=== PATIENT | female | born 1975 ===

== ENCOUNTER 2017-06-01 18:16 | Emergency (ER) | payer SELFPAY ==
--- NOTE | 2017-06-01 19:48 | C.PDOC ---
History Of Present Illness Meri Guy is a 42 year old female, whose past medical history includes HTN and : 3 Para: 2, who presents to the emergency department complaining of persistent left sided headache since this morning. Patient reports taking Tylenol with no significant relief. She notes being 13 weeks and having sound and occasional headaches. Patient denies chest pain, shortness of breath, fever, chills, cough, nausea, vomiting, diarrhea, abdominal pain, dizziness or other complaints. Time Seen by Provider: 06/01/17 19:32 Chief Complaint (Nursing): High Blood Pressure History Per: Patient History/Exam Limitations: no limitations Onset/Duration Of Symptoms: Hrs (this morning ) Current Symptoms Are (Timing): Still Present Associated Symptoms: Headache (left sided ). denies: Chest Pain, Dizziness Exacerbating Factor(s): Pos: None Recent travel outside of the [place]: No Past Medical History Reviewed: Historical Data, Nursing Documentation, Vital Signs Vital Signs: Last Vital Signs Temp 98.2 F 06/01/17 21:33 Pulse 75 06/01/17 21:33 Resp 20 06/01/17 21:33 BP 135/71 06/01/17 21:33 Pulse Ox 100 06/01/17 21:44 - Medical History PMH: HTN Family History: States: No Known Family Hx - Social History Hx Alcohol Use: No Hx Substance Use: No - Immunization History Hx Tetanus Toxoid Vaccination: No Hx Influenza Vaccination: No Hx Pneumococcal Vaccination: No Review Of Systems Constitutional: Negative for: Fever, Chills Eyes: Negative for: Vision Change Cardiovascular: Negative for: Chest Pain Respiratory: Negative for: Shortness of Breath Gastrointestinal: Negative for: Abdominal Pain Genitourinary: Negative for: Dysuria Musculoskeletal: Negative for: Neck Pain Neurological: Positive for: Headache. Negative for: Change in Speech, Dizziness Physical Exam - Physical Exam Appears: Well, Non-toxic, No Acute Distress Skin: Normal Color, Warm, Dry Head: Atraumatic, Normacephalic Eye(s): bilateral: Normal Inspection Neck: Normal ROM Cardiovascular: Rhythm Regular Respiratory: Normal Breath Sounds, No Rales, No Rhonchi Gastrointestinal/Abdominal: Normal Exam, Bowel Sounds (Normal ), Soft, No Tenderness, No Distention, No Guarding, No Rebound Neurological/Psych: Oriented x3, Normal Speech ED Course And Treatment - Laboratory Results Lab Interpretation: Normal (ua neg.) O2 Sat by Pulse Oximetry: 100 (room air) Pulse Ox Interpretation: Normal Reevaluation Time: 21:41 Reassessment Condition: Improved (pt's DEMARCO improved but pt wants other pain meds , though hesitent to take narcotics for associated (mild risks)) Medical Decision Making Medical Decision Making: Impression: 42 y/o female with unremarkable physical exam c/o left sided headache since this morning and is 13 weeks . Plan: -- Urinalysis -- Tylenol -- Reassess and disposition Progress Notes: 2129: given Labetolol (usual PM dose) has DM x 4 yrs since last preg, well controlled NO susp of CVA- pt reassured. NO pre-ecclampsia, normal BP and no proteinuria Disposition Doctor Will See Patient In The: Office Counseled Patient/Family Regarding: Studies Performed, Diagnosis - Disposition Referrals: [facility] [Outside] [place] [employer] [Outside] Fela Velez MD [Medical Doctor] - Disposition: HOME/ ROUTINE Disposition Time: 21:43 Condition: GOOD Additional Instructions: para dolor de romero harry bhandari embarrazo, reuben 1000 mg Tylenol cada 6 horas chely necessario (Un dose de 325 mg es para un margarita de 2 anos) Sigue en [facility] [place] [facility]' con [facility]. Instructions: Headache, Adult, - The Fourth Month Forms: [employer] (Guyanese) Print Language: CHADIAN - Clinical Impression Clinical Impression: , Headache - Scribe Statement The provider has reviewed the documentation as recorded by the Scribe Scribe Attestation: Virginia Tran MD Scribe Attestation: All medical record entries made by the Scribe were at my direction and personally dictated by me. I have reviewed the chart and agree that the record accurately reflects my personal performance of the history, physical exam, medical decision making, and the department course for this patient. I have also personally directed, reviewed, and agree with the discharge instructions and disposition.
[2017-06-01 20:29] LABS: SQUAMOUS EPITHIAL < 1 /hpf (0-5); URINE BILIRUBIN NEGATIVE (NEGATIVE); URINE BLOOD NEGATIVE (NEGATIVE); URINE CLARITY Clear (Clear); URINE COLOR Straw (YELLOW); URINE GLUCOSE (UA) 2+ mg/dL (Normal); URINE LEUKOCYTE ESTERASE TRACE Leu/uL (Negative); URINE NITRATE NEGATIVE (NEGATIVE); URINE PROTEIN NEGATIVE (NEGATIVE); URINE UROBILINOGEN NORMAL mg/dL (0.2-1.0)
[2017-06-01 21:33] VITALS: BP 135/71; PULSE 75; RESP 20; TEMP 98.2
[2017-06-01 21:42] VITALS: O2SAT 100
== END 2017-06-01 21:52 | disposition home or self-care (01) ==
LOC: C.ER 18:16
DX: O26.91 Pregnancy related conditions, unspecified, first trimester (principal); R51 Headache; Z3A.13 13 weeks gestation of pregnancy

== ENCOUNTER 2018-01-13 21:54 | Observation (INO) | payer OTHER ==
[2018-01-13 22:36] LABS: BASO # 0.1 K/uL (0.0-0.2); EOS # 0.4 K/uL (0.0-0.7); EOS % 3.1 % (0.0-4.0); HEMOGLOBIN 12.9 g/dL (11.0-16.0); LYMPH # 2.6 K/uL (1.0-4.3); LYMPH % 19.8 % (20.0-40.0); MEAN CORPUSCULAR HEMOGLOBIN 29.7 pg (27.0-31.0); MEAN CORPUSCULAR HGB CONC 34.5 g/dL (33.0-37.0); MEAN PLATELET VOLUME 8.1 fL (7.2-11.7); MONO # 0.9 K/uL (0.0-0.8); MONO % 7.1 % (0.0-10.0); NEUT # 8.9 K/uL (1.8-7.0); RBC 4.34 Mil/uL (3.80-5.20); RED CELL DISTRIBUTION WIDTH 14.1 % (11.5-14.5); WHITE BLOOD COUNT 12.9 K/uL (4.8-10.8)
[2018-01-13 22:50] LABS: INR 1.1; PROTHROMBIN TIME 11.8 SECONDS (9.7-12.2)
[2018-01-13 22:52] LABS: ALB/GLOB RATIO 1.3 (1.0-2.1); ALBUMIN 4.1 g/dL (3.5-5.0); ALT/SGPT 22 U/L (9-52); AST/SGOT 21 U/L (14-36); BLOOD UREA NITROGEN 21 mg/dL (7-17); CALCIUM 9.2 mg/dl (8.6-10.4); GFR NON-AFRICAN AMERICAN > 60
[2018-01-13 23:01] LABS: CK-MB 0.57 ng/mL (0.0-3.38)
[2018-01-14 00:51] LABS: URINE BILIRUBIN NEGATIVE (NEGATIVE); URINE BLOOD NEGATIVE (NEGATIVE); URINE CLARITY Clear (Clear); URINE COLOR Straw (YELLOW); URINE GLUCOSE (UA) NORMAL (Normal); URINE LEUKOCYTE ESTERASE 2+ Leu/uL (Negative); URINE PROTEIN NEGATIVE (NEGATIVE); URINE UROBILINOGEN NORMAL mg/dL (0.2-1.0)
--- NOTE | 2018-01-14 01:33 | CP.PCM.HP ---
<Bk Aguirre P - Last Filed: 01/14/18 07:29> Meds Allergies/Adverse Reactions: Allergies Allergy/AdvReac Type Severity Reaction Status Date / Time amoxicillin Allergy Verified 01/13/18 22:03 enalapril Allergy Verified 01/13/18 22:03 Results - Vital Signs Recent Vital Signs: Last Vital Signs Temp 98.2 F 01/13/18 22:07 Pulse 71 01/14/18 06:16 Resp 16 01/14/18 06:16 BP 139/78 01/14/18 06:16 Pulse Ox 99 01/14/18 06:53 - Labs Result Diagrams: 01/14/18 04:47 01/14/18 04:47 Labs: Laboratory Results - last 24 hr 01/13/18 01/13/18 01/13/18 22:30 22:30 22:30 WBC 12.9 H RBC 4.34 Hgb 12.9 Hct 37.3 MCV 86.0 MCH 29.7 MCHC 34.5 RDW 14.1 Plt Count 338 MPV 8.1 Neut % (Auto) 69.0 Lymph % (Auto) 19.8 L [place] % (Auto) 7.1 Eos % (Auto) 3.1 Baso % (Auto) 1.0 Neut # (Auto) 8.9 H Lymph # (Auto) 2.6 [place] # (Auto) 0.9 H Eos # (Auto) 0.4 Baso # (Auto) 0.1 PT 11.8 INR 1.1 APTT 34 Sodium 143 Potassium 4.5 Chloride 104 Carbon Dioxide 26 Anion Gap 18 BUN 21 H Creatinine 0.7 Est GFR ( Amer) > 60 Est GFR (Non-Af Amer) > 60 Random Glucose 114 H Calcium 9.2 Phosphorus Magnesium Total Bilirubin 0.4 AST 21 ALT 22 Alkaline Phosphatase 72 Total Creatine Kinase 40 CK-MB (Mass) 0.57 Troponin I < 0.0120 Total Protein 7.3 Albumin 4.1 Globulin 3.2 Albumin/Globulin Ratio 1.3 Triglycerides Cholesterol LDL Cholesterol Direct HDL Cholesterol Free T4 TSH 3rd Generation Urine Color Urine Clarity Urine pH Ur Specific [place] Urine Protein Urine Glucose (UA) Urine Ketones Urine Blood Urine Nitrate Urine Bilirubin Urine Urobilinogen Ur Leukocyte Esterase Urine WBC (Auto) Urine RBC (Auto) 10/02/18 10/02/18 10/02/18 00:31 04:47 04:47 WBC 9.4 RBC 4.49 Hgb 13.2 Hct 38.9 MCV 86.8 MCH 29.4 MCHC 33.8 RDW 14.1 Plt Count 327 MPV 8.1 Neut % (Auto) 59.9 Lymph % (Auto) 29.6 [place] % (Auto) 5.8 Eos % (Auto) 3.6 Baso % (Auto) 1.1 Neut # (Auto) 5.7 Lymph # (Auto) 2.8 [place] # (Auto) 0.5 Eos # (Auto) 0.3 Baso # (Auto) 0.1 PT INR APTT Sodium 141 Potassium 4.1 Chloride 108 H Carbon Dioxide 21 L Anion Gap 16 BUN 20 H Creatinine 0.6 L Est GFR ( Amer) > 60 Est GFR (Non-Af Amer) > 60 Random Glucose 108 H Calcium 9.2 Phosphorus 4.4 Magnesium 1.8 Total Bilirubin 0.5 AST 16 ALT 29 Alkaline Phosphatase 69 Total Creatine Kinase 38 CK-MB (Mass) 0.81 Troponin I < 0.0120 Total Protein 7.0 Albumin 4.0 Globulin 3.0 Albumin/Globulin Ratio 1.3 Triglycerides 95 Cholesterol 223 H LDL Cholesterol Direct 155 H HDL Cholesterol 50 Free T4 TSH 3rd Generation 3.45 Urine Color Straw Urine Clarity Clear Urine pH 6.0 Ur Specific [place] 1.005 Urine Protein Negative Urine Glucose (UA) Normal Urine Ketones Negative Urine Blood Negative Urine Nitrate Negative Urine Bilirubin Negative Urine Urobilinogen Normal Ur Leukocyte Esterase 2+ H Urine WBC (Auto) 8 H Urine RBC (Auto) < 1 01/14/18 01/14/18 04:47 04:47 WBC RBC Hgb Hct MCV MCH MCHC RDW Plt Count MPV Neut % (Auto) Lymph % (Auto) [place] % (Auto) Eos % (Auto) Baso % (Auto) Neut # (Auto) Lymph # (Auto) [place] # (Auto) Eos # (Auto) Baso # (Auto) PT INR APTT Sodium Potassium Chloride Carbon Dioxide Anion Gap BUN Creatinine Est GFR ( Amer) Est GFR (Non-Af Amer) Random Glucose Calcium Phosphorus Magnesium Total Bilirubin AST ALT Alkaline Phosphatase Total Creatine Kinase 37 CK-MB (Mass) 0.81 Troponin I < 0.0120 Total Protein Albumin Globulin Albumin/Globulin Ratio Triglycerides Cholesterol LDL Cholesterol Direct HDL Cholesterol Free T4 0.87 TSH 3rd Generation Urine Color Urine Clarity Urine pH Ur Specific [place] Urine Protein Urine Glucose (UA) Urine Ketones Urine Blood Urine Nitrate Urine Bilirubin Urine Urobilinogen Ur Leukocyte Esterase Urine WBC (Auto) Urine RBC (Auto) Attending/Attestation - Attestation I have personally seen and examined this patient.: Yes I have fully participated in the care of the patient.: Yes I have reviewed all pertinent clinical information: Yes Notes (Text): 01/14/18 07:29 Upper thoracic spine, left rib cage, and lower sternal pain, started all sudden, no h/o injury, reporducible, related with movement, breathing, coughing, slr + on the left side, clinically from thoracic radiculopathy, dd any pleural/pericar dial injury. H/o HTN H/o Early dm Recent delivery Plan CTA chest for the DD Home meds pain control with nsaid/tramadol Repeat troponin. See orders for detail. <Christy Neri - Last Filed: 01/14/18 08:10> History of Present Illness - History of Present Illness History of Present Illness: History and Physical - Hospitalist Service CC: Chest pain HPI: Patient is a 42 year old female with past medical history of Hypertension, Diabetes Mellitus who presents to the Emergency Dept for chest pain that started 2 hours prior to arrival. Patient's is at the bedside. Patient states that this morning when walking around in the house, she started experiecing mild chest pain but didn't think anything of it. While sitting down and eating dinner, patient states that she started experiencing severe midsternal chest pain that radiates to the mid back. Patient states that this has never happened to her before. Pain was so severe that she started crying. She describes it as a pressure like pain that was 10/10 on the pain scale. Chest pain was associated with diaphoresis, shortness of breath and nausea. Denies any vomiting. She denies any alleviating or exacerbating factors. Patient recently had a baby [address] [facility]. Delivery and was uneventful. Currently pain is a 8/10 on the pain scale. Patient states that although she does not check her blood pressure at home, she is compliant with her medications. At this time she admits to having an intermittent headache. She denies any fevers, chills, dizziness, changes in vision/hearing, palpitations, abdominal pain, urinary symptoms, changes in bowel habits, heavy lifting. ED course: Labetalol 100mg PO x 1 Allergies: Amoxicillin (rash), Enalapril (throat swells/itches) Medications: Labetalol 100mg PO BID, Metformin 1000mg PO BID Medical History: Hypertension x 18 years, Diabetes Mellitus, Type 2 x 5-6 years Surgical History: Right breast lumpectomy (benign) Social History: Denies alcohol, tobacco, drug use; lives with her spouse and daughter Family History: Mother- Healthy; Father - healthy; denies any family history of cardiac problems OB History: : 1999 at term, no complications G2: 2004 at term, no complications G3: 2018 at term, no complications Present on Admission - Present on Admission Any Indicators Present on Admission: No Past Patient History - Infectious Disease Hx of Infectious Diseases: None - Past Social History Smoking Status: Never Smoked - CARDIAC Hx Hypertension: Yes - ENDOCRINE/METABOLIC Hx Diabetes Mellitus Type 2: Yes - PSYCHIATRIC Hx Substance Use: No - SURGICAL HISTORY Hx Surgeries: Yes Other/Comment: cyst removed right breast - ANESTHESIA Hx Anesthesia: Yes Hx Anesthesia Reactions: No Physical Exam - Constitutional Appears: Non-toxic, No Acute Distress - Head Exam Head Exam: ATRAUMATIC, NORMAL INSPECTION, NORMOCEPHALIC - Eye Exam Eye Exam: EOMI, PERRL. absent: Scleral icterus Additional comments: Bilateral eye lid swelling - ENT Exam ENT Exam: Mucous Membranes Moist - Neck Exam Neck exam: Positive for: Full Rom. Negative for: Tenderness - Respiratory Exam Respiratory Exam: Clear to Auscultation Bilateral, NORMAL BREATHING PATTERN. absent: Rales, Rhonchi, Wheezes - Cardiovascular Exam Cardiovascular Exam: REGULAR RHYTHM, +S1, +S2, Systolic Murmur. absent: Tachyc ardia Additional comments: Midsternal tenderness to palpation (reproducible) - GI/Abdominal Exam GI & Abdominal Exam: Guarding, Normal Bowel Sounds, Rebound, Rigid, Soft. absent: Tenderness Additional comments: Mild RUQ tenderness to palpation - Extremities Exam Extremities exam: Positive for: normal capillary refill, normal inspection, pedal pulses present. Negative for: calf tenderness - Back Exam Back exam: FULL ROM, paraspinal tenderness. absent: CVA tenderness (L), CVA tenderness (R) Additional comments: +tenderness at the level of T3-T6 - Neurological Exam Neurological exam: Alert, CN II-XII Intact, Oriented x3 - Psychiatric Exam Psychiatric exam: Normal Affect, Normal Mood - Skin Skin Exam: Normal Color, Warm Results - Vital Signs Recent Vital Signs: Last Vital Signs Temp 98.2 F 01/13/18 22:07 Pulse 76 01/13/18 22:25 Resp 18 01/13/18 22:07 BP 181/98 H 01/13/18 22:07 Pulse Ox 99 01/13/18 22:07 - Labs Result Diagrams: 01/14/18 04:47 01/14/18 04:47 Labs: Laboratory Results - last 24 hr 01/13/18 01/13/18 01/13/18 22:30 22:30 22:30 WBC 12.9 H RBC 4.34 Hgb 12.9 Hct 37.3 MCV 86.0 MCH 29.7 MCHC 34.5 RDW 14.1 Plt Count 338 MPV 8.1 Neut % (Auto) 69.0 Lymph % (Auto) 19.8 L [place] % (Auto) 7.1 Eos % (Auto) 3.1 Baso % (Auto) 1.0 Neut # (Auto) 8.9 H Lymph # (Auto) 2.6 [place] # (Auto) 0.9 H Eos # (Auto) 0.4 Baso # (Auto) 0.1 PT 11.8 INR 1.1 APTT 34 Sodium 143 Potassium 4.5 Chloride 104 Carbon Dioxide 26 Anion Gap 18 BUN 21 H Creatinine 0.7 Est GFR ( Amer) > 60 Est GFR (Non-Af Amer) > 60 Random Glucose 114 H Calcium 9.2 Total Bilirubin 0.4 AST 21 ALT 22 Alkaline Phosphatase 72 Total Creatine Kinase 40 CK-MB (Mass) 0.57 Troponin I < 0.0120 Total Protein 7.3 Albumin 4.1 Globulin 3.2 Albumin/Globulin Ratio 1.3 Urine Color Urine Clarity Urine pH Ur Specific [place] Urine Protein Urine Glucose (UA) Urine Ketones Urine Blood Urine Nitrate Urine Bilirubin Urine Urobilinogen Ur Leukocyte Esterase Urine WBC (Auto) Urine RBC (Auto) 01/14/18 00:31 WBC RBC Hgb Hct MCV MCH MCHC RDW Plt Count MPV Neut % (Auto) Lymph % (Auto) [place] % (Auto) Eos % (Auto) Baso % (Auto) Neut # (Auto) Lymph # (Auto) [place] # (Auto) Eos # (Auto) Baso # (Auto) PT INR APTT Sodium Potassium Chloride Carbon Dioxide Anion Gap BUN Creatinine Est GFR ( Amer) Est GFR (Non-Af Amer) Random Glucose Calcium Total Bilirubin AST ALT Alkaline Phosphatase Total Creatine Kinase CK-MB (Mass) Troponin I Total Protein Albumin Globulin Albumin/Globulin Ratio Urine Color Straw Urine Clarity Clear Urine pH 6.0 Ur Specific [place] 1.005 Urine Protein Negative Urine Glucose (UA) Normal Urine Ketones Negative Urine Blood Negative Urine Nitrate Negative Urine Bilirubin Negative Urine Urobilinogen Normal Ur Leukocyte Esterase 2+ H Urine WBC (Auto) 8 H Urine RBC (Auto) < 1 Assessment & Plan - Assessment and Plan (Free Text) Assessment: A/P: Patient is a 42 year old female with past medical history of Hypertension, Diabetes mellitus who presents with midsternal chest pain that has worsened. Chest pain was associated with nausea, diaphoresis and shortness of breath. Chest pain r/o ACS -Stable, afebrile -Will admit to telemetry -EKG showed sinus rhythm with t wave inversions in leads V1 and AVR (no previous EKG to compare) -Initial troponin was negative, trend ANN MARIE q6H x 2 -Echocardiogram ordered -CTA chest also ordered -F/U TSH/Free T4, Lipid panel, hemoglobin A1C -Motrin Q8H prn pain, if no improvement can try Tramadol -Zofran 4mg q6H prn nausea Hypertension -Will restart Labetalol 100mg PO BID -Monitor vital signs Diabetes Mellitus -We will hold Metformin at this time -Low dose Insulin sliding scale and accuchecks ACHS -F/U hemoglobin A1C Abnormal UA -UA showed +leukocyte esterase and 8 WBC -Denies any urinary symptoms -F/U urine culture GI/DVT ppx -Protonix 40mg IVP daily -Lovenox 40mg SC daily Plan discussed with Dr Carla Neri DO PGY-2
[2018-01-14] MEDS ORDERED: Enoxaparin 40 mg Syringe ONE (02:24)
--- NOTE | 2018-01-14 04:40 | C.PDOC ---
History Of Present Illness 42 y/o female presents to the ED complaining of sub-sternal chest pain at rest, onset this evening. No associated SOB, cough, HOFFMAN, dizziness, visual changes, or headache. Patient has PMHx of HTN and Diabetes mellitus. Of note, patient recently delivered a full term baby 26 days ago. Reports she has had history of HTN prior to . Denies any prior cardiac work-up. Time Seen by Provider: 01/13/18 22:10 Chief Complaint (Nursing): Chest Pain History Per: Patient History/Exam Limitations: no limitations Onset/Duration Of Symptoms: Hrs Current Symptoms Are (Timing): Still Present Past Medical History Reviewed: Historical Data, Nursing Documentation, Vital Signs Vital Signs: Last Vital Signs Temp 98.2 F 01/13/18 22:07 Pulse 74 01/14/18 02:56 Resp 18 01/14/18 02:56 BP 144/79 01/14/18 02:56 Pulse Ox 99 01/14/18 02:56 - Medical History PMH: Diabetes, HTN Family History: States: No Known Family Hx - Social History Hx Tobacco Use: No Hx Alcohol Use: No Hx Substance Use: No - Immunization History Hx Tetanus Toxoid Vaccination: No Hx Influenza Vaccination: No Hx Pneumococcal Vaccination: No Review Of Systems Except As Marked, All Systems Reviewed And Found Negative. Constitutional: Negative for: Fever, Chills, Sweats Eyes: Negative for: Vision Change Cardiovascular: Positive for: Chest Pain. Negative for: Palpitations Respiratory: Negative for: Cough, Shortness of Breath, SOB with Excertion Gastrointestinal: Negative for: Nausea, Vomiting Neurological: Negative for: Headache, Dizziness Physical Exam - Physical Exam Appears: Non-toxic, No Acute Distress Skin: Normal Color, Warm, Dry Head: Atraumatic, Normacephalic Eye(s): bilateral: Normal Inspection, PERRL, EOMI Neck: Normal ROM, Supple Chest: Symmetrical, No Deformity, No Tenderness Cardiovascular: Rhythm Regular, No Murmur Respiratory: Normal Breath Sounds, No Rales, No Rhonchi, No Wheezing Gastrointestinal/Abdominal: Soft, No Tenderness, No Distention Extremity: Bilateral: Atraumatic, Normal Color And Temperature, Normal ROM Neurological/Psych: Oriented x3, Normal Speech ED Course And Treatment - Laboratory Results Result Diagrams: 01/14/18 04:47 10/02/18 04:47 ECG: Interpreted By Me, Viewed By Me ECG Rhythm: Sinus Rhythm ECG Interpretation: Normal Rate From EC (bpm) O2 Sat by Pulse Oximetry: 99 (RA) Pulse Ox Interpretation: Normal Medical Decision Making Medical Decision Making: Impression: Chest Pain Initial Plan: --EKG --Labs --Chest x-ray --Reassess 00:56 Spoke to hospitalist, Dr. Aguirre, patient admitted to [facility] for observation of chest pain. Disposition Counseled Patient/Family Regarding: Studies Performed, Diagnosis - Disposition Disposition: HOSPITALIZED Disposition Time: 00:45 Condition: STABLE - POA Present On Arrival: None Core Measure Indicators: Chest Pain - Clinical Impression Clinical Impression: Chest pain - Scribe Statement The provider has reviewed the documentation as recorded by the Scribe (Mildred Moura) Provider Attestation: All medical record entries made by the Scribe were at my direction and personally dictated by me. I have reviewed the chart and agree that the record accurately reflects my personal performance of the history, physical exam, medical decision making, and the department course for this patient. I have also personally directed, reviewed, and agree with the discharge instructions and disposition.
[2018-01-14 04:53] LABS: BASO # 0.1 K/uL (0.0-0.2); BASO % 1.1 % (0.0-2.0); EOS # 0.3 K/uL (0.0-0.7); EOS % 3.6 % (0.0-4.0); HEMOGLOBIN 13.2 g/dL (11.0-16.0); LYMPH # 2.8 K/uL (1.0-4.3); LYMPH % 29.6 % (20.0-40.0); MEAN CELL VOLUME 86.8 fL (81.0-99.0); MEAN CORPUSCULAR HEMOGLOBIN 29.4 pg (27.0-31.0); MEAN CORPUSCULAR HGB CONC 33.8 g/dL (33.0-37.0); MEAN PLATELET VOLUME 8.1 fL (7.2-11.7); MONO # 0.5 K/uL (0.0-0.8); MONO % 5.8 % (0.0-10.0); NEUT # 5.7 K/uL (1.8-7.0); NEUT % 59.9 % (50.0-75.0); NRBC % 0.1 % (0.0-2.0); RBC 4.49 Mil/uL (3.80-5.20); RED CELL DISTRIBUTION WIDTH 14.1 % (11.5-14.5); WHITE BLOOD COUNT 9.4 K/uL (4.8-10.8)
[2018-01-14 05:14] LABS: ALB/GLOB RATIO 1.3 (1.0-2.1); ALT/SGPT 29 U/L (9-52); AST/SGOT 16 U/L (14-36); BLOOD UREA NITROGEN 20 mg/dL (7-17); CALCIUM 9.2 mg/dl (8.6-10.4); GFR NON-AFRICAN AMERICAN > 60; HDL CHOLESTEROL 50 mg/dL (30-70)
[2018-01-14 05:23] LABS: LDL CHOLESTEROL 155 mg/dL (0-129)
[2018-01-14 05:26] LABS: CK-MB 0.81 ng/mL (0.0-3.38)
[2018-01-14 05:27] LABS: CK-MB 0.81 ng/mL (0.0-3.38)
[2018-01-14] MEDS: (Novolin R) Insulin Human Regular 100 units/ml vial SC SCH ×2 (08:17→13:11)
[2018-01-14 08:31] VITALS: RESP 18
[2018-01-14] MEDS ORDERED: Iodixanol 320 mg/ml 150 ml Bottle IV ONE (08:45)
--- NOTE | 2018-01-14 09:20 | RAD ---
Chest x-ray single frontal view HISTORY: Chest pain. COMPARISON: None available. Findings: No focal infiltrate or effusion. Heart size within normal limits. Impression: No focal infiltrate or effusion.
[2018-01-14] MEDS ORDERED: Enoxaparin 30 mg Syringe SC SCH (10:00)
--- NOTE | 2018-01-14 10:02 | CT ---
Date of service: 01/14/2018 PROCEDURE: CT Chest with contrast (Pulmonary Angiogram) HISTORY: pleurtic chest pain COMPARISON: Chest radiograph 01/13/2018. TECHNIQUE: Axial computed tomography images were obtained of the chest in the pulmonary arterial phase of enhancement. Coronal and sagittal reformatted images were created and reviewed. Intravenous contrast dose: Visipaque 320, 100 cc Radiation dose: Total exam DLP = 439.18 mGy-cm. This CT exam was performed using one or more of the following dose reduction techniques: Automated exposure control, adjustment of the mA and/or kV according to patient size, and/or use of iterative reconstruction technique. FINDINGS: PULMONARY ARTERIES: Unremarkable. No pulmonary embolism. AORTA: No acute findings. No thoracic aortic aneurysm. LUNGS: 6 mm calcified granuloma right upper lobe inferior subsegment. No nodule, mass or pulmonary consolidation. PLEURAL SPACES: Unremarkable. No effusion or pneumothorax. HEART: Unremarkable. No cardiomegaly. No significant pericardial effusion. LYMPH NODES: No lymphadenopathy. BONES, CHEST WALL: Unremarkable. No fracture or destructive lesion OTHER FINDINGS: Unremarkable. IMPRESSION: Unremarkable CT pulmonary angiogram. No pulmonary embolus. No acute airspace disease, pleural or pericardial effusion. No pneumothorax. A small calcified granuloma seen at the right lung upper lobe as discussed above. No additional pulmonary nodules or masses. Central airways are clear.
[2018-01-14 11:20] VITALS: BP 116/74; PULSE 79; TEMP 98.8; O2SAT 100
--- NOTE | 2018-01-14 11:26 | CP.PCM.PN ---
Subjective - Date & Time of Evaluation Date of Evaluation: 01/14/18 Time of Evaluation: 08:00 Objective - Vital Signs/Intake and Output Vital Signs (last 24 hours): Temp Pulse Resp BP Pulse Ox 98.8 F 79 18 116/74 100 01/14/18 11:19 01/14/18 11:19 01/14/18 11:19 01/14/18 11:19 01/14/18 11:19 - Medications Medications: Current Medications Acetaminophen (Tylenol 325mg Tab) 650 mg PO Q6 PRN PRN Reason: Headache Enoxaparin Sodium (Lovenox) 40 mg SC DAILY [facility] Last Admin: 01/14/18 02:38 Dose: 40 mg Ibuprofen (Motrin Tab) 600 mg PO TID PRN PRN Reason: Pain, moderate (4-7) Insulin Human Regular (Novolin R) 0 unit SC [facility], [facility]1983; Protocol Last Admin: 01/14/18 08:17 Dose: Not Given Labetalol HCl (Trandate) 100 mg PO BID [facility] Last Admin: 01/14/18 11:19 Dose: 100 mg Ondansetron HCl (Zofran Inj) 4 mg IVP Q6H PRN PRN Reason: Nausea/Vomiting Pantoprazole Sodium (Protonix Inj) 40 mg IVP DAILY [facility] Last Admin: 01/14/18 02:38 Dose: 40 mg - Labs Labs: 01/14/18 04:47 01/14/18 04:47 PT 11.8 SECONDS (9.7-12.2) 01/13/18 22:30 INR 1.1 01/13/18 22:30 APTT 34 SECONDS (21-34) 01/13/18 22:30
--- NOTE | 2018-01-14 14:58 | CP.PCM.DIS ---
Provider - Provider Date of Admission: 01/14/18 00:56 Attending physician: Bk Aguirre MD Primary care physician: Wilfrido Sampson MD Time Spent in preparation of Discharge (in minutes): 35 Diagnosis - Discharge Diagnosis (1) Costochondritis Status: Acute (2) Chest pain Status: Acute Hospital Course - Lab Results Lab Results: Most Recent Lab Values WBC 9.4 K/uL (4.8-10.8) 01/14/18 04:47 RBC 4.49 Mil/uL (3.80-5.20) 01/14/18 04:47 Hgb 13.2 g/dL (11.0-16.0) 01/14/18 04:47 Hct 38.9 % (34.0-47.0) 01/14/18 04:47 MCV 86.8 fL (81.0-99.0) 01/14/18 04:47 MCH 29.4 pg (27.0-31.0) 01/14/18 04:47 MCHC 33.8 g/dL (33.0-37.0) 01/14/18 04:47 RDW 14.1 % (11.5-14.5) 01/14/18 04:47 Plt Count 327 K/uL (130-400) 01/14/18 04:47 MPV 8.1 fL (7.2-11.7) 01/14/18 04:47 Neut % (Auto) 59.9 % (50.0-75.0) 01/14/18 04:47 Lymph % (Auto) 29.6 % (20.0-40.0) 01/14/18 04:47 [place] % (Auto) 5.8 % (0.0-10.0) 01/14/18 04:47 Eos % (Auto) 3.6 % (0.0-4.0) 01/14/18 04:47 Baso % (Auto) 1.1 % (0.0-2.0) 01/14/18 04:47 Neut # (Auto) 5.7 K/uL (1.8-7.0) 01/14/18 04:47 Lymph # (Auto) 2.8 K/uL (1.0-4.3) 01/14/18 04:47 [place] # (Auto) 0.5 K/uL (0.0-0.8) 01/14/18 04:47 Eos # (Auto) 0.3 K/uL (0.0-0.7) 01/14/18 04:47 Baso # (Auto) 0.1 K/uL (0.0-0.2) 01/14/18 04:47 PT 11.8 SECONDS (9.7-12.2) 01/13/18 22:30 INR 1.1 01/13/18 22:30 APTT 34 SECONDS (21-34) 01/13/18 22:30 Sodium 141 mmol/L (132-148) 01/14/18 04:47 Potassium 4.1 mmol/L (3.6-5.2) 01/14/18 04:47 Chloride 108 mmol/L (98-107) H 01/14/18 04:47 Carbon Dioxide 21 mmol/L (22-30) L 01/14/18 04:47 Anion Gap 16 (10-20) 01/14/18 04:47 BUN 20 mg/dL (7-17) H 01/14/18 04:47 Creatinine 0.6 mg/dL (0.7-1.2) L 01/14/18 04:47 Est GFR ( Amer) > 60 01/14/18 04:47 Est GFR (Non-Af Amer) > 60 01/14/18 04:47 POC Glucose (mg/dL) 96 mg/dL (65-110) 01/14/18 07:58 Random Glucose 108 mg/dL (65-105) H 01/14/18 04:47 Hemoglobin A1c 5.8 % (4.2-6.5) 01/14/18 04:47 Calcium 9.2 mg/dl (8.6-10.4) 01/14/18 04:47 Phosphorus 4.4 mg/dL (2.5-4.5) 01/14/18 04:47 Magnesium 1.8 mg/dL (1.6-2.3) 01/14/18 04:47 Total Bilirubin 0.5 mg/dL (0.2-1.3) 01/14/18 04:47 AST 16 U/L (14-36) 01/14/18 04:47 ALT 29 U/L (9-52) 01/14/18 04:47 Alkaline Phosphatase 69 U/L (38-126) 01/14/18 04:47 Total Creatine Kinase 37 U/L (30-135) 01/14/18 04:47 CK-MB (Mass) 0.81 ng/mL (0.0-3.38) 01/14/18 04:47 Troponin I < 0.0120 ng/mL (0.00-0.120) 01/14/18 04:47 Total Protein 7.0 g/dL (6.3-8.3) 01/14/18 04:47 Albumin 4.0 g/dL (3.5-5.0) 01/14/18 04:47 Globulin 3.0 gm/dL (2.2-3.9) 01/14/18 04:47 Albumin/Globulin Ratio 1.3 (1.0-2.1) 01/14/18 04:47 Triglycerides 95 mg/dL (0-149) 01/14/18 04:47 Cholesterol 223 mg/dL (0-199) H 01/14/18 04:47 LDL Cholesterol Direct 155 mg/dL (0-129) H 01/14/18 04:47 HDL Cholesterol 50 mg/dL (30-70) 01/14/18 04:47 Free T4 0.87 ng/dL (0.78-2.19) 01/14/18 04:47 TSH 3rd Generation 3.45 mIU/L (0.46-4.68) 01/14/18 04:47 Urine Color Straw (YELLOW) 01/14/18 00:31 Urine Clarity Clear (Clear) 01/14/18 00:31 Urine pH 6.0 (5.0-8.0) 01/14/18 00:31 Ur Specific [place] 1.005 (1.003-1.030) 01/14/18 00:31 Urine Protein Negative mg/dL (NEGATIVE) 01/14/18 00:31 Urine Glucose (UA) Normal mg/dL (Normal) 01/14/18 00:31 Urine Ketones Negative mg/dL (NEGATIVE) 01/14/18 00:31 Urine Blood Negative (NEGATIVE) 01/14/18 00:31 Urine Nitrate Negative (NEGATIVE) 01/14/18 00:31 Urine Bilirubin Negative (NEGATIVE) 01/14/18 00:31 Urine Urobilinogen Normal mg/dL (0.2-1.0) 01/14/18 00:31 Ur Leukocyte Esterase 2+ Tiesha/uL (Negative) H 01/14/18 00:31 Urine WBC (Auto) 8 /hpf (0-5) H 18 00:31 Urine RBC (Auto) < 1 /hpf (0-3) 01/14/18 00:31 - Hospital Course Hospital Course: On admission: Patient is a 42 year old female with past medical history of Hypertension, Diabetes Mellitus who presents to the Emergency Dept for chest pain that started 2 hours prior to arrival. Patient's is at the bedside. Patient states that this morning when walking around in the house, she started experiecing mild chest pain but didn't think anything of it. While sitting down and eating dinner, patient states that she started experiencing severe midsternal chest pain that radiates to the mid back. Patient states that this has never happened to her before. Pain was so severe that she started crying. She describes it as a pressure like pain that was 10/10 on the pain scale. Chest pain was associated with diaphoresis, shortness of breath and nausea. Denies any vomiting. She denies any alleviating or exacerbating factors. Patient recently had a baby 26 days ago at [facility]. Delivery and pre gnancy was uneventful. Currently pain is a 8/10 on the pain scale. Patient states that although she does not check her blood pressure at home, she is compliant with her medications. At this time she admits to having an intermittent headache. She denies any fevers, chills, dizziness, changes in vision/hearing, palpitations, abdominal pain, urinary symptoms, changes in bowel habits, heavy lifting. Hospital course: Patient was admitted for chest pain and shortness of breath. EKG showed sinus rhythm with t wave inversions in leads V1 and AVR (no previous EKG to compare). Troponin was negative x3. CTA was negative for PE. Patient. Patient had reproducible tenderness to chest and thoracic back. Patient diagnosed with costochondritis. UA showed 2+ leukocyte esterase, 8 WBC- pt denies urinary sym ptoms. Follow up urine culture. Discharge summary: Patient is stable for discharge as per Dr. Meza. Patient is to follow up with her primary care physician, Dr. Sampson, within one week of discharge. You will not be receiving any prescriptions at this time. YOU MUST NOT TAKE YOUR METFORMIN FOR 48 HOURS TO PROTECT YOUR KIDNEYS SINCE YOU HAD A STUDY WITH CONTRAST. You may resume metformin 48 hours after discharge. Patient may take Ibuprofen 400mg every 4 hours for pain as needed. Please avoid heavy lifting. Return to emergency room if you experience new or worsening symptoms. Discharge Exam - Head Exam Head Exam: ATRAUMATIC, NORMAL INSPECTION, NORMOCEPHALIC - Eye Exam Eye Exam: EOMI, PERRL - ENT Exam ENT Exam: Mucous Membranes Moist - Respiratory Exam Respiratory Exam: Chest Wall Tenderness, Clear to PA & Lateral, NORMAL BREATHING PATTERN. absent: Rales, Rhonchi, Wheezes - Cardiovascular Exam Cardiovascular Exam: REGULAR RHYTHM, +S1, +S2 - GI/Abdominal Exam GI & Abdominal Exam: Normal Bowel Sounds, Soft. absent: Guarding, Rebound, Tenderness - Back Exam Back exam: paraspinal tenderness (throracic) - Neurological Exam Neurological exam: Alert, CN II-XII Intact, Oriented x3 - Psychiatric Exam Psychiatric exam: Normal Affect, Normal Mood - Skin Skin Exam: Dry, Intact, Normal Color Discharge Plan - Follow Up Plan Condition: STABLE Disposition: HOME/ ROUTINE Instructions: Chest Pain (DC), What to Watch for After You Have a Baby Additional Instructions: Patient is stable for discharge as per Dr. Meza. Patient is to follow up with her primary care physician, Dr. Sampson, within one week of discharge. You will not be receiving any prescriptions at this time. YOU MUST NOT TAKE YOUR METFORMIN FOR 48 HOURS TO PROTECT YOUR KIDNEYS SINCE YOU HAD A STUDY WITH CONTRAST. You may resume metformin after 48 hours after discharge. Patient may take Ibuprofen 400mg every 4 hours for pain as needed. Please avoid heavy lifting. Return to emergency room if you experience new or worsening symptoms. El paciente est estable para el chau segn el Dr. Meza. El paciente debe hacer un seguimiento con bernardo mdico de atencin primaria, el Dr. Sampson, dentro de [place] semana despus del chau. No recibir ninguna receta en lu momento. NO DEBE RAS BERNARDO METFORMN POR 48 HORAS PARA PROTEGER A BERTRAND RIONES DESDE QUE DEMARCO TENIDO UN ESTUDIO CON CONTRASTE. Puede reanudar la metformina despus de 48 horas despus del chau. El paciente puede ras Ibuprofeno 400 mg cada 4 horas para el dolor segn sea necesario. Por favor, evite levantar objetos pesados. Regrese a la clint de emergencias si experimenta sntomas nuevos o que empeoran. Referrals: Wilfrido Sampson MD [Primary Care Provider] -
--- NOTE | 2018-01-15 12:29 | CARD ---
APPROVED REPORT Date of service: 01/13/2018 EKG Measurement Heart [id number] <Conclusion> Normal sinus rhythm Nonspecific ST abnormality Abnormal ECG
== END 2018-01-14 16:15 | disposition home or self-care (01) ==
LOC: SUPCPDRO 21:54 → C.ER 21:54 → C.9E 01-14 00:56 → C.5S 01-14 11:11
PROVIDERS: ADMIT Internal Medicine; ATTEND Internal Medicine
DX: M94.0 Chondrocostal junction syndrome [Tietze] (principal); I10 Essential (primary) hypertension; E11.9 Type 2 diabetes mellitus without complications
CPT/HCPCS: 36415; 71045; 71275; 80053; 80061; 81001; 82948; 83036; 83735; 84100; 84439; 84443; 84484; 85025; 85610; 85730; 87086; 93005; 94770; 96372; 96374; 99285; C9113; G0378; J1650; Q9967